=== PATIENT | male | born 1965 | race Caucasian/White ===

== ENCOUNTER 2016-11-26 17:28 | Emergency (ER) | payer OTHER ==
[~2016-11-26] VITALS: Ht 185.4 cm; Wt 80.0 kg
[~2016-11-26 17:28] MED LIST: FLUO10TA PO; PROT40TA PO; SYNT125T PO
[2016-11-26 17:36] VITALS: BP 142/78; PULSE 75; RESP 16; TEMP 97.7; O2SAT 100
--- NOTE | 2016-11-26 17:50 | PD ---
HPI Chief Complaint: GI Complaint Time Seen by Provider: 17:44 Travel History International Travel<30 days: No Contact w/Intl Traveler<30days: No Traveled to known affect area: No History of Present Illness HPI This 51-year-old male is complaining of vomiting. The vomiting started around 9 :30 this morning. He had some loose stools the last couple of days. He is having some epigastric cramping. He had similar symptoms a couple years ago and was admitted. He is generally healthy. He is on thyroid replacement. He has a history of thyroid cancer that was treated with surgery and chemotherapy in 2011 [facility] Past Medical History Hx Anticoagulant Therapy: No Arthritis: Yes Asthma: Yes Anxiety: No Depression: No Cancer: Yes (PREVIOUS THYROID CA) Cardiovascular Problems: Yes (CHOL) High Cholesterol: Yes Diabetes: No Diminished Hearing: No Endocrine: Yes Genitourinary: No Immune Disorder: No Musculoskeletal: Yes Neurologic: No Psychiatric: No Reproductive: No Respiratory: Yes Radiation Therapy: Yes Thyroid Disease: Yes Past Surgical History Endocrine Surgery: Yes (thyroidectomy) Pacemaker: No Other Surgery: Yes (THYROID CA) Social History Alcohol Use: No Tobacco Use: No Substance Use: No Allergies-Medications (Allergen,Severity, Reaction): Coded Allergies: No Known Allergies (Unverified , 11/26/16) Reported Meds & Prescriptions Reported Meds & Active Scripts Active Reported Synthroid (Levothyroxine Sodium) 125 Mcg Tab 125 Mcg PO DAILY Review of Systems General / Constitutional: No: Fever, Chills Eyes: No: Diploplia, Blurred Vision HENT: No: Headaches, Vertigo Cardiovascular: No: Chest Pain or Discomfort, Palpitations Respiratory: No: Cough, Shortness of Breath Gastrointestinal: Positive: Nausea, Vomiting, Diarrhea, Abdominal Pain Genitourinary: No: Frequency Musculoskeletal: No: Myalgias, Arthralgias Skin: No Rash, No Itching Neurologic: No: Weakness, Dizziness Physical Exam Narrative GENERAL: Well-developed male SKIN: Focused skin assessment warm/dry. HEAD: Atraumatic. Normocephalic. EYES: Pupils equal and round. No scleral icterus. No injection or drainage. ENT: No nasal bleeding or discharge. Mucous membranes pink and moist. NECK: Trachea midline. No JVD. CARDIOVASCULAR: Regular rate and rhythm. No murmur appreciated. RESPIRATORY: No accessory muscle use. Clear to auscultation. Breath sounds equal bilaterally. GASTROINTESTINAL: Abdomen soft, mild epigastric tenderness, nondistended. Hepatic and splenic margins not palpable. MUSCULOSKELETAL: No obvious deformities. No clubbing. No cyanosis. No edema. NEUROLOGICAL: Awake and alert. No obvious cranial nerve deficits. Motor grossly within normal limits. Normal speech. PSYCHIATRIC: Appropriate mood and affect; insight and judgment normal. Data Data Last Documented VS Vital Signs Date Time Temp Pulse Resp B/P Pulse Ox O2 Delivery O2 Flow Rate FiO2 11/26/16 19:55 18 11/26/16 19:00 98.1 66 154/98 100 Room Air Orders Complete Blood Count With Diff (11/26/16 17:48) Comprehensive Metabolic Panel (11/26/16 17:48) Lipase (11/26/16 17:48) Sodium Chlor 0.9% 1000 Ml Inj (Ns 1000 M (11/26/16 18:00) Sodium Chlor 0.9% 1000 Ml Inj (Ns 1000 M (11/26/16 18:00) Ondansetron Inj (Zofran Inj) (11/26/16 18:00) Electrocardiogram (11/26/16 18:24) Ondansetron Inj (Zofran Inj) (11/26/16 19:00) Hydromorphone Pf Inj (Dilaudid Pf Inj) (11/26/16 19:00) Troponin I (11/26/16 18:07) Prochlorperazine Inj (Compazine Inj) (11/26/16 20:00) Diphenhydramine Inj (Benadryl Inj) (11/26/16 20:00) Labs Laboratory Tests Test 11/26/16 18:07 White Blood Count 9.0 TH/MM3 Red Blood Count 5.28 MIL/MM3 Hemoglobin 14.8 GM/DL Hematocrit 44.9 % Mean Corpuscular Volume 85.0 FL Mean Corpuscular Hemoglobin 28.0 PG Mean Corpuscular Hemoglobin 32.9 % Concent Red Cell Distribution Width 12.8 % Platelet Count 187 TH/MM3 Mean Platelet Volume 8.9 FL Neutrophils (%) (Auto) 79.6 % Lymphocytes (%) (Auto) 11.4 % Monocytes (%) (Auto) 5.4 % Eosinophils (%) (Auto) 0.4 % Basophils (%) (Auto) 3.2 % Neutrophils # (Auto) 7.2 TH/MM3 Lymphocytes # (Auto) 1.0 TH/MM3 Monocytes # (Auto) 0.5 TH/MM3 Eosinophils # (Auto) 0.0 TH/MM3 Basophils # (Auto) 0.3 TH/MM3 CBC Comment DIFF FINAL Differential Comment Sodium Level 142 MEQ/L Potassium Level 4.1 MEQ/L Chloride Level 107 MEQ/L Carbon Dioxide Level 20.2 MEQ/L Anion Gap 15 MEQ/L Blood Urea Nitrogen 9 MG/DL Creatinine 1.40 MG/DL Estimat Glomerular Filtration 54 ML/MIN Rate Random Glucose 110 MG/DL Calcium Level 9.9 MG/DL Total Bilirubin 1.1 MG/DL Aspartate Amino Transf 27 U/L (AST/SGOT) Alanine Aminotransferase 30 U/L (ALT/SGPT) Alkaline Phosphatase 80 U/L Troponin I LESS THAN 0.02 NG/ML Total Protein 7.7 GM/DL Albumin 4.3 GM/DL Lipase 112 U/L [facility] Medical Decision Making Medical Screen Exam Complete: Yes Emergency Medical Condition: Yes Medical Record Reviewed: Yes Differential Diagnosis Differential includes gastroenteritis, food poisoning, dehydration Narrative Course Patient been given IV fluids and had some improvement in his nausea and vomiting. Did have a recrudescence of the symptoms and given additional Zofran and Compazine. He was noted that he was bradycardic in the 40s low 50s. Review of previous chart shows that he has been slow in the past. He has been given 2 L of fluids and Zofran and Compazine and is feeling better. He is stable for discharge Diagnosis Primary Impression: Gastroenteritis Disposition: 01 DISCHARGE HOME Condition: Stable Mars Salvador MD November 26, 2016 17:50
[2016-11-26] MEDS ORDERED: LEVO.125 PO (17:55)
[2016-11-26] MEDS ORDERED: SODIUM CHLOR 0.9% 1000 ML INJ 1,000 ML IV ONE ×2 (18:00)
[2016-11-26] MEDS ORDERED: ONDANSETRON HCL 4 MG/2 ML VIAL IV PUSH ONE ×2 (18:00→19:00)
[2016-11-26 18:10] VITALS: BP 148/88; PULSE 46; RESP 18; O2SAT 97
[2016-11-26 18:25] LABS: AUTOMATED NEUTROPHIL # 7.2 TH/MM3 (1.8-7.7); BASOPHIL # 0.3 TH/MM3 (0-0.2); BASOPHIL % 3.2 % (0.0-2.0); CHLORIDE 107 MEQ/L (98-107); EOSINOPHIL % 0.4 % (0.0-4.0); HEMATOCRIT 44.9 % (39.0-51.0); LYMPH % 11.4 % (9.0-44.0); MEAN CORPUSCULAR HGB CONC 32.9 % (32.0-36.0); MONO % 5.4 % (0.0-8.0); NEUT % 79.6 % (16.0-70.0); PLATELET COUNT 187 TH/MM3 (150-450); POTASSIUM 4.1 MEQ/L (3.5-5.1); RED BLOOD COUNT 5.28 MIL/MM3 (4.50-5.90); RED CELL DISTRIBUTION WIDTH 12.8 % (11.6-17.2); SODIUM (NA) 142 MEQ/L (136-145)
[2016-11-26 18:28] LABS: HEMO FLAGS DIFF FINAL
[2016-11-26 18:29] LABS: ANION GAP 15 MEQ/L (5-15); BICARBONATE 20.2 MEQ/L (21.0-32.0)
[2016-11-26 18:30] LABS: BLOOD UREA NITROGEN 9 MG/DL (7-18)
[2016-11-26 18:32] LABS: ALT (GPT) 30 U/L (12-78); AST (GOT) 27 U/L (15-37); GLOMERULAR FILTRATION RATE 54 ML/MIN (>89)
[2016-11-26 18:34] LABS: TOTAL BILIRUBIN ADULT 1.1 MG/DL (0.2-1.0)
[2016-11-26 18:35] LABS: ALKALINE PHOSPHATASE 80 U/L (45-117)
[2016-11-26 19:00] VITALS: BP 154/98; PULSE 66; RESP 18; TEMP 98.1; O2SAT 100
[2016-11-26] MEDS ORDERED: HYDROmorphone HCL PF 1 MG/ML VIAL IV PUSH ONE (19:00)
[2016-11-26 20:00] VITALS: BP 147/84; PULSE 47; RESP 18; O2SAT 95
[2016-11-26] MEDS ORDERED: PROCHLORPERAZINE INJ 10 MG/2 ML VIAL IV PUSH ONE (20:00)
[2016-11-26] MEDS ORDERED: diphenhydrAMINE HCL 50 MG/ML VIAL IV PUSH ONE (20:00)
--- NOTE | 2016-11-27 15:39 | EKG ---
Date Performed: 11/26/2016 Time Performed: 18:26:16 PTAGE: 51 years EKG: Marked sinus arrhythmia. Normal ECG except for rate PREVIOUS TRACING : 04/19/2014 17.57 Since previous tracing, no significant change noted DOCTOR: Daniel Goetz Interpretating Date/Time 11/27/2016 15:38:05
== END 2016-11-26 20:39 | disposition home or self-care (01) ==
LOC: PHED 17:28
DX: K52.9 Noninfective gastroenteritis and colitis, unspecified (principal); J45.909 Unspecified asthma, uncomplicated; E78.00 Pure hypercholesterolemia, unspecified; E07.9 Disorder of thyroid, unspecified; Z85.850 Personal history of malignant neoplasm of thyroid; Z79.899 Other long term (current) drug therapy
CPT/HCPCS: 80053; 83690; 84484; 85025; 93005; 96361; 96374; 96375; 96376; 99284; J0780; J1170; J1200; J2405; J7030

== ENCOUNTER 2017-11-10 08:45 | Emergency (ER) | payer OTHER ==
[~2017-11-10] VITALS: Ht 185.4 cm; Wt 75.0 kg
[~2017-11-10 08:45] MED LIST changes: -FLUO10TA PO; +LEVO.125 PO; -PROT40TA PO; -SYNT125T PO
[2017-11-10 08:47] VITALS: BP 175/94; PULSE 62; RESP 18; TEMP 97.2; O2SAT 100
[2017-11-10 09:01] VITALS: BP 169/92; PULSE 62; RESP 18; TEMP 98.1
[2017-11-10] MEDS ORDERED: SODIUM CHLOR 0.9% 1000 ML INJ 1,000 ML IV SCH (09:14)
[2017-11-10] MEDS ORDERED: LIDOCAINE VISCOUS 2% SOLN 15 ML UDC PO ONE (09:15)
[2017-11-10] MEDS ORDERED: ALUMINUM/MAGNESIUM/SIMETH 30 ML CUP PO ONE (09:15)
[2017-11-10] MEDS ORDERED: diphenhydrAMINE HCL 50 MG/ML VIAL IV PUSH ONE (09:15)
[2017-11-10] MEDS ORDERED: PROCHLORPERAZINE INJ 10 MG/2 ML VIAL IV PUSH ONE (09:15)
[2017-11-10 09:22] VITALS: PULSE 53; RESP 18; O2SAT 100
[2017-11-10 09:37] LABS: AUTOMATED NEUTROPHIL # 7.9 TH/MM3 (1.8-7.7); BASOPHIL % 0.5 % (0.0-2.0); EOSINOPHIL # 0.1 TH/MM3 (0-0.4); EOSINOPHIL % 0.8 % (0.0-4.0); HEMATOCRIT 45.6 % (39.0-51.0); HEMOGLOBIN 15.9 GM/DL (13.0-17.0); LYMPH % 14.2 % (9.0-44.0); LYMPHOCYTE # 1.5 TH/MM3 (1.0-4.8); MEAN CELL VOLUME 85.1 FL (80.0-100.0); MEAN CORPUSCULAR HEMOGLOBIN 29.7 PG (27.0-34.0); MEAN CORPUSCULAR HGB CONC 34.9 % (32.0-36.0); MEAN PLATELET VOLUME 9.2 FL (7.0-11.0); MONO % 9.6 % (0.0-8.0); NEUT % 74.9 % (16.0-70.0); PLATELET COUNT 185 TH/MM3 (150-450); RED BLOOD COUNT 5.36 MIL/MM3 (4.50-5.90); RED CELL DISTRIBUTION WIDTH 13.8 % (11.6-17.2); WHITE BLOOD COUNT 10.6 TH/MM3 (4.0-11.0)
[2017-11-10] MEDS ORDERED: PROM1SUP7 RECTAL (09:46)
[2017-11-10] MEDS ORDERED: ZOFR4TAB3 SL (09:47)
--- NOTE | 2017-11-10 09:47 | PD ---
HPI Chief Complaint: GI Complaint Time Seen by Provider: 08:59 Travel History International Travel<30 days: No Contact w/Intl Traveler<30days: No Traveled to known affect area: No History of Present Illness HPI 52-year-old male complains of nausea and vomiting for about 4 days. He reports vomiting 10 times to 15 times a day. Yesterday he had diarrhea. No fever. He describes some throbbing abdominal pain which he describes as "dry heaves cramps." Similar episodes have occurred previously and diagnosis is unknown at this time. Patient reports occasional marijuana smoking. Patient follows with the [place]. He denies abnormal food. No urinary complaint. PFSH Past Medical History Hx Anticoagulant Therapy: No Arthritis: Yes Asthma: Yes Anxiety: No Depression: No Cancer: Yes (PREVIOUS THYROID CA) Cardiovascular Problems: Yes (CHOL) High Cholesterol: Yes Diabetes: No Diminished Hearing: No Endocrine: Yes Gastrointestinal Disorders: Yes Genitourinary: No Immune Disorder: No Implanted Vascular Access Dvce: No Musculoskeletal: Yes Neurologic: No Psychiatric: No Reproductive: No Respiratory: Yes Immunizations Current: Yes Radiation Therapy: Yes Thyroid Disease: Yes Tetanus Vaccination: < 5 Years Past Surgical History Endocrine Surgery: Yes (thyroidectomy) Pacemaker: No Other Surgery: Yes (THYROID CA, VASECTOMY, HEMORRHOIDECTOMY, RHINOPLASTY) Social History Alcohol Use: No Tobacco Use: No Substance Use: No Allergies-Medications (Allergen,Severity, Reaction): Coded Allergies: No Known Allergies (Unverified Adverse Reaction, Unknown, 11/10/17) Reported Meds & Prescriptions Reported Meds & Active Scripts Active Zofran Odt (Ondansetron Odt) 4 Mg Tab 4 Mg SL Q8HR PRN Phenergan Supp (Promethazine HCl) 25 Mg Supp 25 Mg RECTAL Q6H PRN Reported Synthroid (Levothyroxine Sodium) 125 Mcg Tab 125 Mcg PO DAILY Review of Systems Except as stated in HPI: all other systems reviewed are Neg General / Constitutional: No: Fever Physical Exam Narrative GENERAL: 52-year-old male well-nourished well-developed mild distress Vital Signs Date Time Temp Pulse Resp B/P (MAP) Pulse Ox O2 Delivery O2 Flow Rate FiO2 11/10/17 09:22 53 18 100 Room Air 11/10/17 09:22 100 Room Air 11/10/17 09:01 98.1 62 18 169/92 (117) Room Air 11/10/17 08:55 18 11/10/17 08:47 97.2 62 18 175/94 (121) 100 SKIN: Warm and dry. HEAD: Atraumatic. Normocephalic. EYES: Pupils equal and round. No scleral icterus. No injection or drainage. ENT: No nasal bleeding or discharge. Mucous membranes pink and moist. NECK: Trachea midline. No JVD. CARDIOVASCULAR: Regular rate and rhythm. RESPIRATORY: No accessory muscle use. Clear to auscultation. Breath sounds equal bilaterally. GASTROINTESTINAL: Abdomen soft, non-tender, nondistended. Hepatic and splenic margins not palpable. MUSCULOSKELETAL: Extremities without clubbing, cyanosis, or edema. No obvious deformities. NEUROLOGICAL: Awake and alert. No obvious cranial nerve deficits. Motor grossly within normal limits. Five out of 5 muscle strength in the arms and legs. Normal speech. PSYCHIATRIC: Appropriate mood and affect; insight and judgment normal. Data Data Last Documented VS Vital Signs Date Time Temp Pulse Resp B/P (MAP) Pulse Ox O2 Delivery O2 Flow Rate FiO2 11/10/17 09:22 53 18 100 Room Air 11/10/17 09:01 98.1 Orders Orders Complete Blood Count With Diff (11/10/17 09:13) Comprehensive Metabolic Panel (11/10/17 09:13) Iv Access Insert/Monitor (11/10/17 09:13) Oxygen Administration (11/10/17 09:13) Oximetry (11/10/17 09:13) Lipase (11/10/17 09:13) Sodium Chlor 0.9% 1000 Ml Inj (Ns 1000 M (11/10/17 09:14) Al-Mag Hy-Si 40-40-4 Mg/Ml Liq (Mag-Al P (11/10/17 09:15) Lidocaine 2% Viscous (Xylocaine 2% Visco (11/10/17 09:15) Prochlorperazine Inj (Compazine Inj) (11/10/17 09:15) Diphenhydramine Inj (Benadryl Inj) (11/10/17 09:15) Labs Laboratory Tests Test 11/10/17 09:21 White Blood Count 10.6 TH/MM3 Red Blood Count 5.36 MIL/MM3 Hemoglobin 15.9 GM/DL Hematocrit 45.6 % Mean Corpuscular Volume 85.1 FL Mean Corpuscular Hemoglobin 29.7 PG Mean Corpuscular Hemoglobin Concent 34.9 % Red Cell Distribution Width 13.8 % Platelet Count 185 TH/MM3 Mean Platelet Volume 9.2 FL Neutrophils (%) (Auto) 74.9 % Lymphocytes (%) (Auto) 14.2 % Monocytes (%) (Auto) 9.6 % Eosinophils (%) (Auto) 0.8 % Basophils (%) (Auto) 0.5 % Neutrophils # (Auto) 7.9 TH/MM3 Lymphocytes # (Auto) 1.5 TH/MM3 Monocytes # (Auto) 1.0 TH/MM3 Eosinophils # (Auto) 0.1 TH/MM3 Basophils # (Auto) 0.0 TH/MM3 CBC Comment DIFF FINAL Differential Comment Blood Urea Nitrogen 18 MG/DL Creatinine 1.40 MG/DL Random Glucose 110 MG/DL Total Protein 7.5 GM/DL Albumin 4.4 GM/DL Calcium Level 9.2 MG/DL Alkaline Phosphatase 84 U/L Aspartate Amino Transf (AST/SGOT) 51 U/L Alanine Aminotransferase (ALT/SGPT) 42 U/L Total Bilirubin 1.8 MG/DL Sodium Level 139 MEQ/L Potassium Level 3.4 MEQ/L Chloride Level 100 MEQ/L Carbon Dioxide Level 25.8 MEQ/L Anion Gap 13 MEQ/L Estimat Glomerular Filtration Rate 53 ML/MIN Lipase 214 U/L [facility]DM Medical Decision Making Medical Screen Exam Complete: Yes Emergency Medical Condition: Yes Medical Record Reviewed: Yes Differential Diagnosis Constipation, Gastritis, Acute Cholecystitis, Biliary Colic, Pancreatitis, HUI , Hepatitis, Bowel Obstruction, Cystitis, Mesenteric Ischemia, AAA, Appendicitis , Renal Stone/Hydronephrosis, GERD, perforated viscous Narrative Course CBC & BMP Diagram 11/10/17 09:21 Total Protein 7.5, Albumin 4.4, Calcium Level 9.2, Alkaline Phosphatase 84, Aspartate Amino Transf (AST/SGOT) 51 H, Alanine Aminotransferase (ALT/SGPT) 42, Total Bilirubin 1.8 H As noted the rectal exam revealed red blood without obvious hemorrhoids. There is also minimal dizziness which is in this scenario concerning for volume loss to the GI bleed. Patient will be kept here on monitor with serial CBCs and GI evaluation. Diagnosis Primary Impression: Nausea & vomiting Qualified Codes: R11.2 - Nausea with vomiting, unspecified Additional Impressions: Dehydration Abdominal pain Qualified Codes: R10.9 - Unspecified abdominal pain Hypokalemia Referrals: [place] [facility] Med/Other Pt SpecificInfo: Prescription(s) given Scripts Ondansetron Odt (Zofran Odt) 4 Mg Tab 4 MG SL Q8HR Y for Nausea/Vomiting, #15 TAB 0 Refills Prov: Carson Headley MD 11/10/17 Promethazine Supp (Phenergan Supp) 25 Mg Supp 25 MG RECTAL Q6H Y for NAUSEA OR VOMITING, #10 SUPP 0 Refills Prov: Carson Headley MD 11/10/17 Disposition: DISCHARGE HOME Condition: Stable Carson Headley MD Nov 10, 2017 09:47
[2017-11-10 09:48] LABS: ALBUMIN 4.4 GM/DL (3.4-5.0); AST (GOT) 51 U/L (15-37); BICARBONATE 25.8 MEQ/L (21.0-32.0); BLOOD UREA NITROGEN 18 MG/DL (7-18); CALCIUM 9.2 MG/DL (8.5-10.1); CHLORIDE 100 MEQ/L (98-107); GLOMERULAR FILTRATION RATE 53 ML/MIN (>89); GLUCOSE,RANDOM 110 MG/DL (74-106); SODIUM (NA) 139 MEQ/L (136-145)
[2017-11-10 09:49] LABS: ALT (GPT) 42 U/L (12-78)
[2017-11-10 09:51] LABS: ALKALINE PHOSPHATASE 84 U/L (45-117); TOTAL BILIRUBIN ADULT 1.8 MG/DL (0.2-1.0); TOTAL PROTEIN 7.5 GM/DL (6.4-8.2)
[2017-11-10] MEDS ORDERED: POTASSIUM CHLORIDE 20 MEQ CONTROLLED RELEASE TAB PO ONE (10:30)
[2017-11-10 10:55] VITALS: BP 156/71
== END 2017-11-10 11:08 | disposition home or self-care (01) ==
LOC: NEPE 08:45
DX: R11.2 Nausea with vomiting, unspecified (principal); E86.0 Dehydration; R10.9 Unspecified abdominal pain; E87.6 Hypokalemia; K62.5 Hemorrhage of anus and rectum; E78.00 Pure hypercholesterolemia, unspecified; J45.909 Unspecified asthma, uncomplicated; F12.90 Cannabis use, unspecified, uncomplicated; Z85.850 Personal history of malignant neoplasm of thyroid; Z79.899 Other long term (current) drug therapy
CPT/HCPCS: 80053; 83690; 85025; 96361; 96374; 96375; 99284; J0780; J1200; J7030